=== PATIENT | male | born 1990 | race Hispanic/Latino ===

== ENCOUNTER → 2018-03-29 | Day surgery (SDC) | payer OTHER ==
[2018-03-28 15:30] VITALS: BMI 22.0
[~2018-03-29] MED LIST: Bacitracin Zinc Ointment 30 gm TUBE ONE; Ciprofloxacin 0.2% Otic 1 DROP CON ONE; Dexamethasone 20 MG/5 ML VIAL ONE; EPINEPHrine 1 MG/ML AMP ONE; Fentanyl 100 MCG/2 ML VIAL ONE; Hydrocodone-Acetamin 15 ML UDCUP ONE; Lidocaine 1% PF 5 ML VIAL ONE; Lidocaine 1% w/Epinephrine 1:100K 30 ML VIAL ONE; Midazolam HCl 2 mg/2 ml Vial ONE; Ondansetron HCl/PF 4 MG/2 ML Vial ONE; PROPOFOL 200 MG/20 ML VIAL ONE; Succinylcholine Chloride 20 MG/ML 10 ml SYRINGE FS ONE
--- NOTE | 2018-03-29 19:37 | OP ---
PREOPERATIVE DIAGNOSES: Right chronic otitis media, right large anterior tympanic membrane perforati on. POSTOPERATIVE DIAGNOSES: Right chronic otitis media, right large anterior tympanic membrane perforat ion. PROCEDURE PERFORMED: Right tympanomastoidectomy with facial nerve monitoring using microscopic visua lization. PROCEDURE IN DETAIL: After consent was obtained, the patient was identified, and brought to the oper ating room and placed on the operating table in supine position. General endotracheal anesthesia was obtained and the patient was positioned for surgery. The facial nerve monitor was placed in the orb icularis cielo and orbicularis oculi and documented to be functioning well. We then prepped and drape d the patient and injected the external canal and posterior canal skin. A postauricular incision was made and carried down through the skin, subcutaneous tissues, and down to the perichondrium. The te mporalis fascia was identified and a graft was harvested measuring approximately 2 x 1 cm and trimmed and put on the back table to dry. We then created a tympanomeatal flap and put a self-retaining ret raction. Periosteal incision was made over the mastoid and the mastoid bone was exposed. A standard simple mastoidectomy was performed. We used the cutting and alicja bur exposing the jugular, the l ateral sinus of the cerebral venous collection system and the tegmen of skull base. Good access was obtained to the attic of the middle ear space. We then beaded the marginal epithelium around the tym panic membrane perforation and placed it with the temporalis fascial graft. The middle ears space wa s then packed with Gelfoam and tympanomeatal flap was replaced. The external canal was then packed w ith Gelfoam similarly and the ear was replaced and periosteum was reapproximated with absorbable [place] cryl suture, and the skin was closed with 6-0 Prolene. The remainder of the external canal was packe d with liquified bacitracin ointment and a cotton ball was applied. Sterile dressing was applied. T he patient was awakened, facial nerve was intact and transferred to recovery where he remained in sta ble condition prior to discharge home.
== END ==
LOC: SDC 08:44
PROVIDERS: ATTEND Specialist
PROC: 09R707Z Replacement of Right Tympanic Membrane with Autologous Tissue Substitute, Open Approach (ICD-10-PCS; principal; 2018-03-29)
PROC: 0JB10ZZ Excision of Face Subcutaneous Tissue and Fascia, Open Approach (ICD-10-PCS; principal; 2018-03-29)
DX: H66.91 Otitis media, unspecified, right ear (principal); H72.11 Attic perforation of tympanic membrane, right ear; Z79.899 Other long term (current) drug therapy
CPT/HCPCS: J0171; J2001; J2250; J3010